=== PATIENT | male | born 1945 | race Caucasian/White ===

== ENCOUNTER 2018-07-04 12:59 | Emergency (ER) | payer MEDICARE ==
[~2018-07-04] VITALS: Ht 180.3 cm; Wt 106.8 kg
[~2018-07-04 12:59] MED LIST: ADULT ASA81 M1 OR; BACTRIM DS1 TAB OR; CEPHALEXIN500 MG OR; LORTAB 5 OR; PROSTATE FORMULA
[2018-07-04] MEDS ORDERED: BACTRIM DS1 TAB PO (13:56)
[2018-07-04 14:04] VITALS: BP 165/74
== END 2018-07-04 14:13 | disposition home or self-care (01) ==
LOC: ED 12:59
DX: L76.82 Other postprocedural complications of skin and subcutaneous tissue (principal); Y83.8 Other surgical procedures as the cause of abnormal reaction of the patient, or of later complication, without mention of misadventure at the time of the procedure

== ENCOUNTER 2018-09-13 14:23 | Inpatient (IN) | payer MEDICARE ==
[~2018-09-13] VITALS: Ht 180.3 cm; Wt 111.2 kg
[~2018-09-13 14:23] MED LIST changes: -ADULT ASA81 M1 OR; +ADULT ASPIRIN E81 MG PO; +BACTRIM DS1 TAB PO
[2018-09-13 14:55] LABS: HEMATOCRIT 34.8 % (39.0-50.0); IMMATURE GRANULOCYTES 0.6 % (0.0-5.0); MEAN CELL VOLUME 84.3 fL CALC (80.0-100.0); MEAN CORPUSCULAR HGB 26.6 pG CALC (26.0-32.0); MEAN CORPUSCULAR HGB CONC 31.6 g/L CALC (32.0-36.0); NEUT# 12.5 thou/uL (1.82-7.42); RED BLOOD COUNT 4.13 mill/uL (4.70-6.10); RED CELL DISTRI WIDTH 16.6 % (11.5-15.5)
--- NOTE | 2018-09-13 15:54 | NUR ---
PT RECEIVING ABX PER ORDERS, PRESENTED WITH SHORTNESS OF BREATH. IV WAS DISLODGED PER PUTTING PILLOWS UNDER HIM, RESTARTED.
[2018-09-13 15:57] LABS: ANION GAP 17 (6-22 (CALC)); BUN 18 mg/dL (8-23); BUN/CREATININE RATIO 22 (12-20 (CALC)); CARBON DIOXIDE 22 mmol/l (22-30); CHLORIDE 103 mmol/l (95-108); CREATININE 0.8 mg/dL (0.7-1.3); GFR > 60 ML/MIN (>=60 (CALC)); GFR FOR AFR.AMER. > 60 ML/MIN (>=60 (CALC)); POTASSIUM 4.1 mmol/l (3.5-5.1); SODIUM 138 mmol/l (137-146)
[2018-09-13] MEDS ORDERED: OMNICEF300 MG PO (17:56)
[2018-09-13] MEDS ORDERED: FINASTERIDE5 MG PO (17:56)
[2018-09-13] MEDS ORDERED: ATORVASTATIN CA80 MG PO (17:57)
[2018-09-13] MEDS ORDERED: MELATONIN3 M3 PO (17:57)
[2018-09-13] MEDS ORDERED: IPRATROPIU0.5 MG/3 M IN (17:58)
[2018-09-13] MEDS ORDERED: LOPRESSOR25 MG PO (17:58)
[2018-09-13] MEDS ORDERED: BREO ELLIPTA1 INH PO (17:59)
[2018-09-13] MEDS ORDERED: OMEGA 31000 MG PO (18:00)
[2018-09-13] MEDS ORDERED: PRESERVISION PO (18:00)
--- NOTE | 2018-09-13 18:00 | NUR ---
PT ARRIVED FROM ER VIA STRETCHER ACCOMAPNIED BY STAFF. IV SITE IS FREE FROM REDNESS OR EDEMA. TELE MONITOR IN PLACE.
[2018-09-13] MEDS ORDERED: ELIQUIS5 MG PO (18:01)
[2018-09-13] MEDS ORDERED: CHEST CONGESTI400 MG PO (18:01)
--- NOTE | 2018-09-13 18:17 | NUR ---
PT TAKEN TO ROOM 283 WITHOUT INCIDENT. REPORT WAS TO
[2018-09-13 18:30] VITALS: BP 140/69
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
[2018-09-13 19:15] VITALS: BP 132/63
--- NOTE | 2018-09-13 20:20 | NUR ---
PT RESTING IN BED, NO SIGNS OF DISTRESS NOTED, RESP EVEN AND UNLABORED. 02 2L NC, DISCUSSED POC, PT HAS CPAP FROM HOME. PT REQUESTING MEDS FROM HOME, CALL MADE TO FOR ORDERS. ASSESSMENT COMPLETED, CALL LIGHT IN REACH,CONTINUE TO MONITOR.
--- NOTE | 2018-09-13 21:00 | NUR ---
PT MEDICATED PER AUG. PT SITTING IN RECLINER, RT CALLED TO ASSIST PT WITH SETTING UP HOME CPAP. CALL LIGHT IN REACH,CONTINUE TO MONITOR.
[2018-09-14 00:01] VITALS: BP 106/61
--- NOTE | 2018-09-14 00:33 | NUR ---
PT RESTING IN BED WITH EYES CLOSED, NO SIGNS OF DISTRESS NOTED, RESP EVEN AND UNLABORED. PT USING CPAP FROM HOME. CALL LIGHT IN REACH,CONTINUE TO MONITOR.
--- NOTE | 2018-09-14 04:00 | NUR ---
PT RESTING IN BED WITH EYES CLOSED, CPAP FROM HOME IN USE. NO SIGNS OF DISTRESS NOTED, RESP EVEN AND UNLABORED. CALL LIGHT IN REACH,CONTINUE TO MONITOR.
[2018-09-14 04:14] VITALS: BP 115/52
[2018-09-14 05:33] LABS: HEMATOCRIT 32.6 % (39.0-50.0); HEMOGLOBIN 10.1 g/dl (14.0-18.0); IMMATURE GRANULOCYTES 1.2 % (0.0-5.0); MEAN CELL VOLUME 85.1 fL CALC (80.0-100.0); MEAN CORPUSCULAR HGB 26.4 pG CALC (26.0-32.0); NEUT# 15.38 thou/uL (1.82-7.42); RED BLOOD COUNT 3.83 mill/uL (4.70-6.10); RED CELL DISTRI WIDTH 16.7 % (11.5-15.5)
[2018-09-14 05:43] LABS: ANION GAP 13 (6-22 (CALC)); BILIRUBIN, TOTAL 1.1 mg/dL (0.0-1.4); BUN 18 mg/dL (8-23); BUN/CREATININE RATIO 21 (12-20 (CALC)); CARBON DIOXIDE 24 mmol/l (22-30); CHLORIDE 104 mmol/l (95-108); CREATININE 0.9 mg/dL (0.7-1.3); GFR > 60 ML/MIN (>=60 (CALC)); GFR FOR AFR.AMER. > 60 ML/MIN (>=60 (CALC)); LIPASE 68 u/l (23-300); MAGNESIUM 1.8 mg/dL (1.6-2.3); POTASSIUM 4.1 mmol/l (3.5-5.1); SGOT/AST 25 u/l (19-48); SODIUM 137 mmol/l (137-146); TOTAL PROTEIN 5.3 g/dL (6.3-8.2)
[2018-09-14 05:46] LABS: ALBUMIN 2.4 g/dL (3.2-5.0); ALKALINE PHOSPHATASE 118 u/l (38-126); AMYLASE < 30 u/l (30-110)
[2018-09-14 07:50] VITALS: BP 147/66
--- NOTE | 2018-09-14 07:56 | NUR ---
GAVE PT AN ISP C/O BEING SOB. CONTINUE TO OSBERVE AND MONITOR.
--- NOTE | 2018-09-14 08:00 | NUR ---
ASSESSMENT IS COMPLTED: IV SITE IS FREE FROM REDNESS OR EDEMA. HR IS REG, PULSES ARE STRONG X4 ABD IS SOFT WITH ACTIVE BS. BREATH SOUNDS ARE WHEEZING THROUGH OUT. O2 @ 2LITERS WITH NC. PT C/O NOT BREATHING WELL. C PAP IN THE ROOM. CONTINUE TO OSEBRVE AND MONITOR.
[2018-09-14 11:06] VITALS: BP 118/66
--- NOTE | 2018-09-14 12:00 | NUR ---
PT IS RELAXING IN THE CHAIR, NO DISTRESS NOTED. IV SITE IS FREE FROM REDNESS OR EDEMA.
--- NOTE | 2018-09-14 12:45 | NUR ---
PT TRANSPORTED TO HAVE CT SCAN OF [place], RETURNED AT 1300,
--- NOTE | 2018-09-14 13:10 | NUR ---
PT TRANSPORTED TO HAVE AN ECHO COMPLETED; VIA WC ACCOMPANIED BY STAFF. RETURNED AT 1330
[2018-09-14 15:05] VITALS: BP 105/52
--- NOTE | 2018-09-14 16:00 | NUR ---
PT IS RELAXING IN THE CHAIR. NO DISTRESS NOTED. IV SITE IS FREE FROM REDNESS OR EDEMA. CONTINUE TO OSBERVE AND MONITOR.
[2018-09-14 19:10] VITALS: BP 131/63
--- NOTE | 2018-09-14 19:30 | NUR ---
REPORT RECEIVED FROM MOISES MIDDLETON. PT RESTING IN RECLINER AT BEDSIDE. NO SIGNS OR SYMPTOMS OF DISTRESS. SAFETY PRECAUTIONS IN PLACE WILL CONTINUE TO MONITOR.
--- NOTE | 2018-09-14 20:34 | NUR ---
PT RESTING IN RECLINER AT BEDSIDE. ALERT AND ORIENTED. SOB ON O2 VIA NC @ 3L. PT RUNNING A TEMP OF 101.3, MEDICATED PER EMAR ORDERS. SAFEYT PRECAUTIONS IN PLACE WILL CONTINUE TO MONITOR.
[2018-09-15 00:38] VITALS: BP 108/49
--- NOTE | 2018-09-15 02:58 | NUR ---
PT RESTING IN BED. RESPIRATIONS EVEN AND UNLABORED CPAP IN PLACE. PT REPORTS PAIN OF A 6 OUT OF 10, PT MEDICATED PER EMAR ORDERS. SAFETY PRECAUTIONS IN PLACE, WILL CONTINUE TO MONITOR.
[2018-09-15 03:41] VITALS: BP 104/59
[2018-09-15 07:50] VITALS: BP 113/67
--- NOTE | 2018-09-15 08:20 | NUR ---
PT IS SITTING IN THE SIDE OF THE BED. PT HAVING SOB. PT STATED THAT HE HAS BEEN COUGHING. P- 98 O2 IS 87% AT O2. TOLD PT TO TAKE SOME SLOW AND DEEP BREATHS O2 NOW IS 90%. ASSESSMENT DONE. TELE IN PLACE. 02 AT 2L VIA GA. ASSISTED PT TO THE RECLINER. PT DENIES ANY OTHER NEEDS AT THIS TIME. CALL LIGHT IN REACH.
[2018-09-15 08:42] LABS: URINE BLOOD DIPSTICK NEGATIVE (NEGATIVE); URINE GLUCOSE - DIPSTICK NEGATIVE (NEGATIVE); URINE KETONE NEGATIVE (NEGATIVE); URINE LEUK ESTERASE NEGATIVE (Negative); URINE NITRITE - DIPSTICK NEGATIVE (Negative); URINE PH 5.5 (4.5-8.0); URINE PROTEIN - DIPSTICK 30 mg/dL (NEG-TRACE); URINE SPECIFIC GRAVITY 1.025
[2018-09-15 09:16] LABS: URINE CLARITY HAZY; URINE COLOR DK. YELLOW
[2018-09-15 09:18] LABS: URINE BILIRUBIN - DIPSTICK NEGATIVE (NEGATIVE); URINE RBC 0-2 RBC/hpf (0-5); URINE SQUAMOUS EPITHELIAL CELL FEW EPI/hpf (0-FEW)
[2018-09-15 11:20] VITALS: BP 108/59
--- NOTE | 2018-09-15 11:50 | NUR ---
PT IS SITTING IN THE RECLINER AND AT SIDE. PT DENIES ANY NEEDS AT THIS TIME. CALL LIGHT IN REACH.
--- NOTE | 2018-09-15 16:00 | NUR ---
PT IS SITTING IN RECLINER. PT DENIES ANY NEEDS AT THIS TIME. IN ROOM. 02 AT 2L VIA ND. CALL LIGHT IN REACH.
[2018-09-15 16:28] VITALS: BP 122/66
--- NOTE | 2018-09-15 19:20 | NUR ---
REPORT RECEIVED FROM ODALIS EDEN. PT RESTING IN RECLINER AT BEDSIDE. ALERT AND ORIENTED. NO SIGNS OR SYMPTOMS OF DISTRESS. SAFETY PRECAUTIONAS IN PLACE. WILL CONTINUE TO MONITOR.
[2018-09-15 19:41] VITALS: BP 112/57
--- NOTE | 2018-09-15 21:05 | NUR ---
PT CHANGING CHEST DRESSING. PT PRACTICES CLEAN TECHNIQUE AND USES HIS OWN SUPPLIES. PICTURES OBTAINED AND PLACED IN THE CHART.
[2018-09-16] VITALS (7 sets, daily range): BP systolic 102–134; BP diastolic 53–66
--- NOTE | 2018-09-16 01:24 | NUR ---
REPORT RECIEVED FROM ODALIS EDEN. PT RESTING IN RECLINER AT BEDSIDE. ALERT AND ORIENTED. NO SIGNS OR SYMPTOMS OF DISTRESS. SAFETY PRECAUTIONS IN PLACE. WILL CONTINUE TO MONITOR.
--- NOTE | 2018-09-16 01:36 | NUR ---
PT RESTING IN BED EYES CLOSED, RESPIRATIONS EVEN AND UNLABORED, CPAP ON. NO SIGNS OR SYMPTOMS OF DISTRESS. SAFETY PRECAUTIONS IN PLACE. WILL CONTINUE TO MONITOR.
--- NOTE | 2018-09-16 05:35 | NUR ---
PT RESTING IN BED WITH NO SIGNS OF DISTRESS. SAFETY PRECAUTIONS IN PLACE, CALL LIGHT WITHIN REACH, WILL CONTINUE TO MONITOR.
[2018-09-16 05:48] LABS: HEMATOCRIT 32.3 % (39.0-50.0); HEMOGLOBIN 10.1 g/dl (14.0-18.0); IMMATURE GRANULOCYTES 2.3 % (0.0-5.0); MEAN CORPUSCULAR HGB 26.6 pG CALC (26.0-32.0); MEAN CORPUSCULAR HGB CONC 31.3 g/L CALC (32.0-36.0); NEUT# 21.21 thou/uL (1.82-7.42); RED BLOOD COUNT 3.8 mill/uL (4.70-6.10); RED CELL DISTRI WIDTH 16.9 % (11.5-15.5)
[2018-09-16 05:50] LABS: ANION GAP 15 (6-22 (CALC)); BUN 26 mg/dL (8-23); BUN/CREATININE RATIO 30 (12-20 (CALC)); CARBON DIOXIDE 25 mmol/l (22-30); CHLORIDE 101 mmol/l (95-108); CREATININE 0.9 mg/dL (0.7-1.3); GFR > 60 ML/MIN (>=60 (CALC)); GFR FOR AFR.AMER. > 60 ML/MIN (>=60 (CALC)); MAGNESIUM 2.1 mg/dL (1.6-2.3); POTASSIUM 4.4 mmol/l (3.5-5.1); SODIUM 137 mmol/l (137-146)
[2018-09-16 05:53] LABS: HDL CHOLESTEROL 16 mg/dL (>=40); TOTAL TRIGLYCERIDES 61 mg/dl (30-149); VLDL CHOLESTROL 12 mg/dl (0-38 (CALC))
[2018-09-16 05:54] LABS: CHOLESTEROL HDL RATIO 3.1 (<4.4 (CALC))
[2018-09-16 05:55] LABS: TOTAL CHOLESTEROL < 50 mg/dl (0-199)
--- NOTE | 2018-09-16 08:00 | NUR ---
PT IS SITTING IN RECLINER. ASSESSMENT DONE. PT IS A&O X3. PT STATED HE FEELS BETTER TODAY. PT DENIES PAIN. TELE IN PLACE. DRESSING IN CHEST CDI. PT DOES HIS OWN DRESSING. 02 2L VIA RI. PT DENIES ANY NEEDS AT THIS TIME. CALL LIGHT IN REACH.
--- NOTE | 2018-09-16 11:20 | NUR ---
PT IS SITTING IN RECLINER. AND AYSHA ORTIZ IN ROOM TO DISCUSS POC. IN ROOM. CALL LIGHT IN REACH.
--- NOTE | 2018-09-16 15:06 | NUR ---
PT IS SITTING IN RECLINER. PRUINE JUICE PROVIDED. IN ROOM. PT DENIES ANY OTHER NEEDS AT THIS TIME. CALL LIGHT IN REACH.
--- NOTE | 2018-09-16 19:10 | NUR ---
PT IS SITTING IN RECLINER. REPORTS FEELING BETTER TODAY THAN YESTERDAY. POC DISCUSSED. PT DENIES ANY NEEDS AT THIS TIME. WILL FOLLOW-UP W/ASSESSMENT AND MEDICATIONS ORDERS PROVIDE. CALL LIGHT AT SIDE.
--- NOTE | 2018-09-16 21:15 | NUR ---
PT MEDICATED ORDERS PROVIDE, ASSESSMENT COMPLETED AT THIS TIME. LUNG SOUNDS ARE DIMINISHED. LABS AND POC DISCUSSED W/PT EXTENSIVELY AT THIS TIME. RESPIRATORY CALLED TO ASSIST W/CPAP PREPARATION. PT IS WEARING 02NC, SLIGHTLY SOB UPON EXERTION, PT UP MOVING AROUND ROOM WHILE I'M IN THE ROOM. PT LEFT IN RECLINER, DENIES ANY OTHER NEEDS AT THIS TIME. CALL LIGHT AT BEDSIDE.
[2018-09-17 04:48] VITALS: BP 111/61
--- NOTE | 2018-09-17 07:05 | NUR ---
REPORT RECEIVED FROM ODALIS LAKHANI;PT APPEARS TO BE SLEEPING IN SEMI FOWLERS POSITION WITH HOME CPAP IN PLACE;NO S/S OF DISTRESS NOTED;RESPIRATIONS EVEN AND UNLABORED ON RA;TELE MONITORING;ALL SAFETY PRECAUTIONS IN PLACE WITH BED IN THE LOWEST POSITION AND CALL LIGHT IN REACH;WILL CONTINUE TO MONITOR
[2018-09-17 08:56] VITALS: BP 122/61
--- NOTE | 2018-09-17 09:00 | NUR ---
PT RESTING AT BEDSIDE,A&O X3;VS OBTAINED AND ASSESSMENT COMPLETED;PT DENIES ANY CURRENT PAIN OR DISCOMFORTS,PAIN SCALE AND REPORTING EDUCATED;RESPIRATIONS SHALLOW ON O2 @ 2L VIA NC,EXERTIONAL SOB NOTED AT TIMES;NON-PRODUCTIVE COUGH;ABDOMEN DISTENDED/SOFT ON PALPATION AND ACTIVE IN ALL 4 QUADRANTS;WEAK PEDAL PULSES WITH +1 EDEMA NOTED TO BLE,ENCOURAGED ELEVATION;WOUND NOTED TO STERNUM,PACKED WITH DRESSING PER PT CARE.DRESSING CDI AT THIS TIME;ACCUCHECK 186, PT WAS COVERED WITH NOVOLOG PER ORDER;#20G TO LEFT FOREARM FLUSHED AND PATENT,SITE APPEARS HEALTHY;TELE MONITORING IN PLACE;PT DENIES ANY ADDITIONAL NEEDS AT THIS TIME AND IS ENCOURAGED TO CALL FOR ASSISTANCE IF NEEDED;CALL LIGHT IN REACH;WILL CONTINUE TO MONITOR
--- NOTE | 2018-09-17 10:50 | NUR ---
AT BEDSIDE DISCUSSING POC,INCLUDING TRANSFER TO H[facility] LEVEL OF CARE FACILITY WITH PT AND SPOUSE;PT AND SPOUSE VERBALIZE UNDERSTANDING.
[2018-09-17 11:43] VITALS: BP 148/71
--- NOTE | 2018-09-17 11:45 | NUR ---
PT OOB RESTING IN RECLINER WITH SPOUSE AT BEDSIDE;RESPIRATIONS EVEN AND UNLABORED ON RA;PT DENIES ANY CURRENT PAIN OR DISCOMFORTS;ACCUCHECK 230, PT COVERED WITH SLIDING SCALE INSULIN PER ORDER;IV SITE TO [facility] REMAINS PATENT;TELE MONITORING IN PLACE;ASSESSMENT REMAINS UNCHANGED AT THIS TIME;AWAITING TRANSFER ORDERS TO [facility];PT ENCOURAGED TO CALL FOR ASSISTANCE IF NEEDED;CALL LIGHT IN REACH;WILL CONTINUE TO MONITOR
[2018-09-17 15:42] VITALS: BP 162/80
--- NOTE | 2018-09-17 16:45 | NUR ---
PT OOB RESTING IN RECLINER WITH SPOUSE AT BEDSIDE;RESPIRATIONS REMAIN EVEN AND UNLABORED ON O2 @ 2L VIA NC,NON-PRODUCTIVE COUGH NOTED AT TIMES;PT DENIES ANY CURRENT PAIN OR NEEDS;IV SITE TO LEFT FOREARM REMAINS PATENT;TELE MONITORING IN PLACE;PT UPDATED ON POC INCLUDING TRANSFER TO [facility], [employer]PROX HANDLE SANDER OPERATOR VIA [place] AT 1800,PT VERBALIZES UNDERSTANDING;PT DENIES ANY ADDITIONAL NEEDS AT THIS TIME;CALL LIGHT IN REACH;WILL CONTINUE TO MONITOR
--- NOTE | 2018-09-17 18:14 | NUR ---
[facility] AT [facility]
--- NOTE | 2018-09-17 18:21 | NUR ---
PT TRANSFERRED [place] TO [facility] IN STABLE CONDITION.
--- NOTE | 2018-09-17 18:29 | NUR ---
REPORT CALLED TO ODALSI SERRATO AT [facility].
== END 2018-09-17 18:19 | disposition short-term general hospital (02) | DRG 190 ==
LOC: ED 14:23 → ED-I 16:55 → ED 17:11 → MS2 17:12
PROVIDERS: Family Medicine; Nurse Practitioner Family; ADMIT Internal Medicine Nephrology; ATTEND Internal Medicine Nephrology
DX: J44.1 Chronic obstructive pulmonary disease with (acute) exacerbation (principal); J18.9 Pneumonia, unspecified organism; J91.8 Pleural effusion in other conditions classified elsewhere; T81.31XA Disruption of external operation (surgical) wound, not elsewhere classified, initial encounter; J44.0 Chronic obstructive pulmonary disease with (acute) lower respiratory infection; I10 Essential (primary) hypertension; I48.2 Chronic atrial fibrillation; I25.10 Atherosclerotic heart disease of native coronary artery without angina pectoris; G47.33 Obstructive sleep apnea (adult) (pediatric); E78.5 Hyperlipidemia, unspecified; R73.9 Hyperglycemia, unspecified; Y83.2 Surgical operation with anastomosis, bypass or graft as the cause of abnormal reaction of the patient, or of later complication, without mention of misadventure at the time of the procedure; Z86.711 Personal history of pulmonary embolism; Z86.718 Personal history of other venous thrombosis and embolism; Z95.1 Presence of aortocoronary bypass graft; Z79.01 Long term (current) use of anticoagulants
CPT/HCPCS: G0378; J2020

== ENCOUNTER 2023-08-04 11:43 | Inpatient (IN) | payer MEDICARE ==
[~2023-08-04] VITALS: Ht 180.3 cm; Wt 122.6 kg
[~2023-08-04 11:43] MED LIST changes: +ATORVASTATIN CA80 MG PO; +BREO ELLIPTA1 INH PO; +CHEST CONGESTI400 MG PO; +ELIQUIS5 MG PO; +FINASTERIDE5 MG PO; +IPRATROPIU0.5 MG/3 M IN; +LOPRESSOR25 MG PO; +MELATONIN3 M3 PO; +OMEGA 31000 MG PO; +OMNICEF300 MG PO; +PRESERVISION PO
--- NOTE | 2023-08-04 11:45 | NUR ---
PT TO ROOM WITH STEADY GAIT. AT BEDSIDE, SOB WITH EXERTION.
[2023-08-04 11:59] VITALS: BP 163/84
--- NOTE | 2023-08-04 12:16 | NUR ---
PROVIDER AT BEDSIDE
[2023-08-04] MEDS ORDERED: IPRATROPIUM-Albuterol 0.5MG-2.5MG/3 ML NEB ONE (12:25)
[2023-08-04 12:29] LABS: URINE BILIRUBIN - DIPSTICK Negative (NEGATIVE); URINE BLOOD DIPSTICK Negative (NEGATIVE); URINE GLUCOSE - DIPSTICK Negative (NEGATIVE); URINE KETONE Negative (NEGATIVE); URINE LEUK ESTERASE Negative (NEGATIVE); URINE NITRITE - DIPSTICK Negative (Negative); URINE PH 5.5 (4.5-8.0); URINE PROTEIN - DIPSTICK 100 mg/dL (NEG-TRACE); URINE SPECIFIC GRAVITY 1.025; URINE UROBILINOGEN - DIPSTICK 0.2 E.U./dL (0.2)
[2023-08-04 12:31] VITALS: BP 158/75
[2023-08-04 12:34] LABS: URINE COLOR Yellow
[2023-08-04 12:35] LABS: URINE EPITHELIAL CELLS FEW EPI/hpf (0-FEW); URINE MUCUS MODERATE hpf (NONE-FEW)
[2023-08-04 12:36] LABS: BASO% 0.4 % (0-3); EOS% 0.7 % (0-8); IMMATURE GRANULOCYTES 0.6 % (0.0-5.0); LYMPH% 18.2 % (15-41); MEAN CORPUSCULAR HGB 31.7 pG CALC (26.0-32.0); MEAN CORPUSCULAR HGB CONC 32.7 g/dL CAL (32.0-36.0); NEUT# 4.86 thou/uL (1.82-7.42); NEUT% 67.1 % (42-76); RED BLOOD COUNT 4.23 mill/uL (4.70-6.10); RED CELL DISTRI WIDTH 14.4 % (11.5-15.5)
[2023-08-04 12:38] LABS: HEMOGLOBIN 13.4 g/dl (14.0-18.0); MEAN CELL VOLUME 96.9 fL CALC (80.0-100.0)
[2023-08-04 12:51] LABS: ALKALINE PHOSPHATASE 68 u/l (38-126); ANION GAP 11 (6-22 (CALC)); BILIRUBIN, TOTAL 0.7 mg/dL (0.2-1.3); BUN 19 mg/dL (8-23); BUN/CREATININE RATIO 19 (12-20 (CALC)); CARBON DIOXIDE 22 mmol/l (22-30); CHLORIDE 111 mmol/l (95-108); D-DIMER 0.38 mg/L (0.19-0.60); GFR FOR AFR.AMER. > 60 ML/MIN (>=60 (CALC)); GFR OTHER RACES > 60 ML/MIN (>=60 (CALC)); INTERNATIONAL NORMALIZED RATIO 1.2 RATIO (0.7-1.3); POTASSIUM 3.8 mmol/l (3.5-5.1); PROTHROMBIN TIME 11.6 SECONDS (9.0-12.5); SODIUM 140 mmol/l (137-146); TOTAL PROTEIN 6.2 g/dL (6.3-8.2)
[2023-08-04] MEDS ORDERED: LISINOPRIL10 MG PO (12:51)
[2023-08-04 12:52] LABS: ALBUMIN 3.5 g/dL (3.2-5.0); SGOT/AST 44 u/l (19-48)
[2023-08-04] MEDS ORDERED: FUROSEMIDE 40 MG/4 ML SDV IV ONE (13:15)
[2023-08-04] MEDS ORDERED: guaiFENesin-CODEINE 200-20 MG/10 ML UDC PO ONE (13:15)
--- NOTE | 2023-08-04 13:32 | NUR ---
PT TAKEN TO CT VIA WHEELCHAIR
--- NOTE | 2023-08-04 13:46 | NUR ---
PT RETURNED FROM CT SCAN
[2023-08-04] MEDS ORDERED: AZITHROMYCIN 500 MG in SODIUM CHLORIDE 0.9% 250 ML IV ONE (14:50)
[2023-08-04] MEDS ORDERED: methylPREDNISolone SODIUM SUCC 125 MG/2 ML SDV IV ONE (14:55)
[2023-08-04] MEDS ORDERED: MAGNESIUM HYDROXIDE 30 ML UDC PO PRN (15:00)
[2023-08-04] MEDS ORDERED: IPRATROPIUM-Albuterol 0.5MG-2.5MG/3 ML NEB PRN (15:00)
[2023-08-04] MEDS ORDERED: ACETAMINOPHEN 325 MG/TAB PO PRN (15:00)
--- NOTE | 2023-08-04 15:55 | NUR ---
PT LAYING IN BED, NO DISTRESS NOTED AT THIS TIME. [facility].
[2023-08-04] MEDS ORDERED: LISINOPRIL 10 MG/TAB PO SCH (16:00)
--- NOTE | 2023-08-04 17:10 | NUR ---
PT TAKEN TO [facility] ROOM 278.
[2023-08-04 17:32] VITALS: BP 164/58
--- NOTE | 2023-08-04 17:37 | NUR ---
Reassessment of patient completed. No distress noted.
--- NOTE | 2023-08-04 17:37 | NUR ---
PT CARE REPORT GIVEN TO RONNIE JACOBO, ON [facility].
--- NOTE | 2023-08-04 18:00 | NUR ---
RECEIVED FROM ER, ALERT ORIENTED X4. ADMISSION ASSESSMENT COMPLETED. DENIES PAINOR DISCOMFORT. ORIENTED TO ROOM, CALL ROSE SYSTEM CARE PLAN. VOICED UNDERSTANDING.
[2023-08-04 19:22] VITALS: BP 141/57
--- NOTE | 2023-08-04 20:10 | NUR ---
RECEIVED BEDSIDE REPORT FROM DAYSHIFT NURSE. PT IS SITTING UP IN BED AT THIS TIME. PT AHS NO COMPLAINTS AT THIS TIME. MADE PT AWARE OF CHANGE OF SHIFT AND NURSE. PLAN OF CARE HAS BEEN ESTABLISHED. SAFETY PRECAUTIONS IN PLACE AND CALL LIGHT WITHIN REACH.
[2023-08-04] MEDS ORDERED: ENOXAPARIN SODIUM 40 MG/0.4 ML SYR SC SCH (21:00)
[2023-08-04] MEDS ORDERED: MELATONIN 3 MG/TAB PO SCH (21:00)
[2023-08-04] MEDS ORDERED: ATORVASTATIN CALCIUM 40 MG/TAB PO SCH (21:00)
[2023-08-04] MEDS ORDERED: FINASTERIDE 5 MG/TAB PO SCH (21:00)
[2023-08-04] MEDS ORDERED: FUROSEMIDE 40 MG/4 ML SDV IV SCH (21:00)
[2023-08-04] MEDS ORDERED: APIXABAN BASE 5 MG TAB PO SCH (21:00)
[2023-08-04] MEDS ORDERED: METOPROLOL TARTRATE 25 MG/TAB PO SCH (21:00)
[2023-08-04] MEDS ORDERED: methylPREDNISolone Sod Succ 40 MG/ML SDV IV SCH (22:00)
[2023-08-05] VITALS (7 sets, daily range): BP systolic 110–139; BP diastolic 44–60
--- NOTE | 2023-08-05 | NUR ---
PT IS IN ROOM SLEEPING COMFORTABLY IN BED AT THIS TIME. PT SHOWS NO SIGNS OF PAIN OR DISTRESS AT THIS TIME. SAFETY PRECAUTIONS IN PLACE CALL LIGHT WITHIN REACH.
--- NOTE | 2023-08-05 00:15 | NUR ---
PT IS SLEEPIN COMFORTABLY AT THIS TIME. SAFETY PRECAUTION IN PLACE AND CALL LIGHT WITHIN REACH.
--- NOTE | 2023-08-05 04:00 | NUR ---
PT IS IN BED SLEEPING COMFORTABLY. SAFETY PRECAUTIONS IN PLACE AND CALL LIGHT WITHIN REACH.
--- NOTE | 2023-08-05 04:15 | NUR ---
PT IS IN BED SLEEPING COMFORTABLY AT THIS TIME. SAFETY PRECAUTIONS IN PLACVE AND CALL LIGHT WITHIN REACH.
[2023-08-05 06:14] LABS: BASO% 0.2 % (0-3); HEMATOCRIT 42.5 % (39.0-50.0); HEMOGLOBIN 13.9 g/dl (14.0-18.0); IMMATURE GRANULOCYTES 0.4 % (0.0-5.0); LYMPH% 10.4 % (15-41); MEAN CELL VOLUME 96.6 fL CALC (80.0-100.0); MEAN CORPUSCULAR HGB 31.6 pG CALC (26.0-32.0); MEAN CORPUSCULAR HGB CONC 32.7 g/dL CAL (32.0-36.0); MONO% 2.2 % (2-13); NEUT# 4.27 thou/uL (1.82-7.42); NEUT% 86.8 % (42-76); RED BLOOD COUNT 4.4 mill/uL (4.70-6.10)
[2023-08-05 06:17] LABS: ALBUMIN 3.7 g/dL (3.2-5.0); ALKALINE PHOSPHATASE 68 u/l (38-126); BILIRUBIN, TOTAL 0.6 mg/dL (0.2-1.3); BUN 22 mg/dL (8-23); BUN/CREATININE RATIO 19 (12-20 (CALC)); CHLORIDE 106 mmol/l (95-108); CREATININE 1.2 mg/dL (0.7-1.3); GFR FOR AFR.AMER. > 60 ML/MIN (>=60 (CALC)); GFR OTHER RACES 59 ML/MIN (>=60 (CALC)); MAGNESIUM 1.7 mg/dL (1.6-2.3); SGOT/AST 41 u/l (19-48); SODIUM 139 mmol/l (137-146); TOTAL PROTEIN 6.1 g/dL (6.3-8.2)
[2023-08-05 06:24] LABS: ANION GAP 9 (6-22 (CALC)); CARBON DIOXIDE 28 mmol/l (22-30)
--- NOTE | 2023-08-05 08:43 | NUR ---
CASE MANAGEMENT AT BEDSIDE. PATIENT C/O COUGH AND BRADYCARDIA.
--- NOTE | 2023-08-05 08:44 | NUR ---
PATIENT UP TO CHAIR. ASSESSMENT COMPLETED. ALERT AND ORIENTED X 4. BREATHING EVEN AND UNLABORED ON ROOM AIR. 20 LFA SL FLUSHES WELL. 2+ PITTING EDEMA NOTED IN BLE. ABDOMEN DISTENDED, BUT SOFT. STATES THIS NORMAL. SLIGHT REDNESS/RASH NOTED IN BLE. DENIES PAIN AT THIS TIME. CRACKLES NOTED IN MID-LOWER LUNG BASES. SAFETY MEASURES IN PLACE INCLUDING CALL LIGHT ON BEDSIDE TABLE NEXT TO PATIENT. NO APPARENT DISTRESS NOTED. WILL CONTINUE WITH PLAN OF CARE. PATIENT STATES HE USES CPAP AT NIGHT, CONTACTED TO BRING MACHINE IN.
[2023-08-05] MEDS ORDERED: guaiFENesin-CODEINE 200-20 MG/10 ML UDC PO PRN (10:50)
--- NOTE | 2023-08-05 11:55 | NUR ---
PATIENT UP TO CHAIR. FAMILY AT BEDSIDE. DENIES ANY ISSUES OR CONCERNS AT THIS TIME. WILL CONTINUE WITH PLAN OF CARE.
--- NOTE | 2023-08-05 15:48 | NUR ---
PATIENT UP TO CHAIR. DENIES ANY ISSUES OR CONCERNS AT THIS TIME. NO APPARENT DISTRESS NOTED. STATES HE IS CONTINUING TO COUGH, BUT REQUESTS "SOMETHING BEFORE BED TO HELP WITH MY COUGH". WILL PASS REQUEST ON TO ONCOMING NURSE.
[2023-08-05] MEDS ORDERED: AZITHROMYCIN 500 MG in SODIUM CHLORIDE 0.9% 250 ML IV SCH (16:00)
[2023-08-05] MEDS ORDERED: ALPRAZolam 0.25 MG PO PRN (20:40)
[2023-08-05] MEDS ORDERED: FUROSEMIDE 40 MG/4 ML SDV IV SCH (22:00)
--- NOTE | 2023-08-05 23:21 | NUR ---
pt is alert and oriented x 3 sitting up in bed. pleasant. 02 sats high 80's to low 90's. placed on 02 via nc at 2 liters via nc. 02 sats 94%. has sob on exertion. ambulated to bathroom without difficulty. pt is aware to void in urinal to keep accurate meausurement. top bed rails up. bed is locked call light in reach
[2023-08-06 00:55] VITALS: BP 122/53
[2023-08-06 04:27] VITALS: BP 127/58
[2023-08-06 06:49] LABS: HEMATOCRIT 41.7 % (39.0-50.0); HEMOGLOBIN 13.4 g/dl (14.0-18.0); IMMATURE GRANULOCYTES 0.2 % (0.0-5.0); LYMPH% 4.9 % (15-41); MEAN CELL VOLUME 97.9 fL CALC (80.0-100.0); MEAN CORPUSCULAR HGB 31.5 pG CALC (26.0-32.0); MEAN CORPUSCULAR HGB CONC 32.1 g/dL CAL (32.0-36.0); MONO% 4.2 % (2-13); NEUT# 11.29 thou/uL (1.82-7.42); NEUT% 90.7 % (42-76); RED BLOOD COUNT 4.26 mill/uL (4.70-6.10); RED CELL DISTRI WIDTH 14.3 % (11.5-15.5)
[2023-08-06 07:06] VITALS: BP 146/56
[2023-08-06 07:19] LABS: ALBUMIN 3.4 g/dL (3.2-5.0); BILIRUBIN, TOTAL 0.5 mg/dL (0.2-1.3); CHOLESTEROL HDL RATIO 2.3 (<4.4 (CALC)); CREATININE 1.4 mg/dL (0.7-1.3); POTASSIUM 4.5 mmol/l (3.5-5.1); TOTAL PROTEIN 5.7 g/dL (6.3-8.2)
--- NOTE | 2023-08-06 07:21 | NUR ---
PT AOX3, SITTING UP IN ROOM DRINKING COFFEE BP 146/56, HR 47, O2 AT 91% ON 2L, TEMP 97.5, RESPIRATIONS EVEN, LUNGS DIM THROUGHOUT, PRODUCTIVE COUGH, +1 EDEMA BILATERAL LOWER EXTREMITIES, [place] PAIN AT THIS TIME. WILL CONTUINE TO MONITOR.
--- NOTE | 2023-08-06 08:01 | NUR ---
DIP PAINTER DISCUSSING PLAN OF CARE WITH PT VIA [facility] AT THIS TIME.
[2023-08-06 10:36] VITALS: BP 128/46
--- NOTE | 2023-08-06 11:59 | NUR ---
PT SITTING UP IN CHAIR EATING LUNCH AT THIS TIME. O2 AT 95% ON 2L, PT DENIES PAIN AT THIS TIME.
--- NOTE | 2023-08-06 14:50 | NUR ---
PRN ROBITUSSIN GIVEN FOR COUGH.
[2023-08-06 15:00] VITALS: BP 117/48
--- NOTE | 2023-08-06 16:21 | NUR ---
PT IS AOX3, UP WALKING THE HALLS AT THIS TIME WITHOUT ANY SIGNS/SYMPTOMS OF SHORTNESS OF BREATH, RESPIRATIONS ARE EVEN AND UNLABORED AT THIS TIME.
--- NOTE | 2023-08-06 17:05 | NUR ---
ASKED PT TO KEEP HIS NL ON, HE KEEPS REMOVING IT TO WALK THE HALLS. EXPLAINED TO PT THAT MELISSA REAERS OXYGEN TO HIM WHEN HE IS ACTUALLY WEARING IT.
[2023-08-06 19:42] VITALS: BP 128/50
--- NOTE | 2023-08-06 20:00 | NUR ---
RECEIVED REPORT FROM NURSE FLORIAN ROBLES ALERT ORIENTED ON O2 @2LPM SITTING IN CHAIR, IV ON LFA G 20 PATENT FLUSHES WELL, HOOKED ON TELEMTERY# 23, DENIES PAIN AT THIS TIME, COUGHING NOTED NON PRODUSCTIVE, NOTED EDEMA ON LOWEL EXTEREMITY PATYINET STATED BETTER, EXERTIONAL DYSPNEA NOTED CALL LIGHT IN REACH.
--- NOTE | 2023-08-07 | NUR ---
FLORIAN RESTING IN BED, EYES CLOSED, PATIENT WEARING CPAP, BREATHING UNLABORED CALL LIGHT IN REACH.
[2023-08-07 00:51] VITALS: BP 124/48
--- NOTE | 2023-08-07 04:34 | NUR ---
RT IN ROOM PATINET GETTING BREATHING TREATMENT,
[2023-08-07 04:58] VITALS: BP 133/50
[2023-08-07 06:44] LABS: HEMATOCRIT 43.8 % (39.0-50.0); HEMOGLOBIN 13.9 g/dl (14.0-18.0); MEAN CELL VOLUME 97.8 fL CALC (80.0-100.0); MEAN CORPUSCULAR HGB CONC 31.7 g/dL CAL (32.0-36.0); RED BLOOD COUNT 4.48 mill/uL (4.70-6.10); RED CELL DISTRI WIDTH 14.1 % (11.5-15.5)
[2023-08-07 07:17] LABS: CREATININE 1.4 mg/dL (0.7-1.3); POTASSIUM 3.8 mmol/l (3.5-5.1)
--- NOTE | 2023-08-07 07:30 | NUR ---
RECEIVED REPORT FROM NIGHTSHIFT NURSE. PT NOTED SITTING UP IN CHAIR WITH FEET ELEVATED. +2 PITTING EDEMA NOTED TO BLE. ALISHA MARIA APPLIED. PT A/OX3, DENIES ANY PAIN. NASAL CANNULA IN PLACE ON 2L O2. PT DENIES ANY SOB AT THIS TIME. EDUCATED PT ON PLAN OF CARE, IMAGING, AND MED SCHEDULE. CALL LIGHT WITHIN REACH AND SAFETY PRECAUTIONS IN PLACE.
--- NOTE | 2023-08-07 08:07 | NUR ---
PT DOWN TO XRAY VIA WHEELCHAIR +O2
[2023-08-07 10:09] VITALS: BP 139/45
--- NOTE | 2023-08-07 13:06 | NUR ---
PT DOWN TO ECHO VIA WHEELCHAIR
[2023-08-07] MEDS ORDERED: MEDDOSEPAK PO (13:43)
[2023-08-07] MEDS ORDERED: LASIX20 MG PO (13:44)
--- NOTE | 2023-08-07 14:13 | NUR ---
IV site discontinued, cath intact. No edema , no redness, voices no discomfort. Discharge instructions given. Patient verbalizes understanding of same. Discharged in stable condition via Wheelchair to Home with staff. All belongings sent with pt.
--- NOTE | 2023-08-09 10:20 | NUR ---
Discharge follow up call completed 08/09/23. Pt states he is doing well and improving daily. Pt is taking prescribed medication as directed and has had no issues since discharge. Pt has home O2 and is using as needed. Pt has a follow up appointment with his PCP this afternoon. No needs or concerns verbalized at this time.
== END 2023-08-07 14:43 | disposition home or self-care (01) | DRG 291 ==
LOC: ED 11:43 → ED-I 14:10 → ED 15:00 → MS2 15:01
PROVIDERS: Nurse Practitioner; ADMIT Student in an Organized Health Care Education/Training Program; ATTEND Student in an Organized Health Care Education/Training Program
DX: I11.0 Hypertensive heart disease with heart failure (principal); I50.31 Acute diastolic (congestive) heart failure; J44.1 Chronic obstructive pulmonary disease with (acute) exacerbation; I48.91 Unspecified atrial fibrillation; I25.10 Atherosclerotic heart disease of native coronary artery without angina pectoris; G47.33 Obstructive sleep apnea (adult) (pediatric); E78.5 Hyperlipidemia, unspecified; E66.9 Obesity, unspecified; Z95.1 Presence of aortocoronary bypass graft; Z86.711 Personal history of pulmonary embolism; Z86.718 Personal history of other venous thrombosis and embolism; Z20.822 Contact with and (suspected) exposure to COVID-19; Z79.01 Long term (current) use of anticoagulants
CPT/HCPCS: Q9967